=== PATIENT | female | born 1995 | race Caucasian/White ===

== ENCOUNTER 2021-11-07 09:13 | Outpatient (CLI) | payer OTHER, SELFPAY ==
[2021-11-07 09:24] LABS: Hemoglobin 14.2 g/dL (12.0-15.0); Mean Corpuscular HGB Conc 34.6 g/dL (32.0-36.0); Mean Corpuscular Hemoglobin 31.1 pg (27.0-31.0); Mean Corpuscular Volume 89.9 fL (78.0-102.0); Mean Platelet Volume 9.5 fl (9.2-11.8); Platelet Count Result 335 K/mm3 (150-420); Red Blood Count 4.56 M/mm3 (4.20-5.40); Red Cell Distribution Width 11.9 % (11.6-14.4); White Blood Count 7.3 K/mm3 (4.8-10.8)
[2021-11-07 10:32] LABS: Alanine Aminotransferase 93 U/L (14-59); Albumin Level 3.9 g/dL (3.4-5.0); Alkaline Phosphatase 120 U/L (46-116); Anion Gap 9 mmol/L (8-16); Aspartate Amino Transferase 44 U/L (15-37); Bilirubin,Total 0.4 mg/dL (0.00-1.00); Blood Urea Nitrogen 11 mg/dL (7-18); Calcium 8.9 mg/dL (8.5-10.1); Carbon Dioxide 28 mmol/L (21-32); Chloride 104 mmol/L (98-108); Cholesterol 172 mg/dL (0-200); Estimated Glomerular Filt Rate > 60; Folic Acid 10.5 ng/mL (8.6->20); Glucose 79 mg/dL (70-99); HDL Direct 63 mg/dL (40-60); LDL Cholesterol Calculated 97 mg/dL (<130); Osmolality Calculated 290 mOsm/kg (285-295); Sodium 141 mmol/L (136-145); Thyroid Stimulating Hormone 3.66 uIU/mL (0.36-3.74); Triglycerides 59 mg/dL (0-150); Vitamin B12 627 pg/mL (193-986)
== END 2021-11-07 09:14 | disposition home or self-care (01) ==
LOC: CHSLAB 09:16
PROVIDERS: PCP Physician Assistant; Visit Provider Physician Assistant
DX: Z00.00 Encounter for general adult medical examination without abnormal findings (principal); R21 Rash and other nonspecific skin eruption
CPT/HCPCS: 36415; 80053; 80061; 82607; 82746; 84443; 85027; 86038; 86039